=== PATIENT | male | born 1955 | race Caucasian/White ===

== ENCOUNTER 2017-05-24 07:49 | Day surgery (SDC) | payer BC, OTHER ==
[2017-05-23 11:11] VITALS: BMI 28.1
[2017-05-24 08:31] VITALS: TEMP 97.6
[2017-05-24 11:20] VITALS: BP 116/68; PULSE 56
--- NOTE | 2017-05-27 11:34 | PATH ---
Surgical Pathology Report Patient Name: ANAHY EVERETT [facility]. Rec. #: [id number] /Age/Gender: 1955 (Age: 61) / M Account: [id number] Location: [facility]-ENDOSCOPY Taken: 05/24/2017 Received: 05/24/2017 Reported: 05/27/2017 Physicians: Markus Broderick M.D. Specimen(s) Received BX RIGHT COLON POLYPS Clinical History Preoperative diagnosis: Screening Postoperative diagnosis: Polyps, diverticulosis Final Diagnosis COLON, RIGHT, POLYPS, POLYPECTOMY: TUBULAR ADENOMA. SEPARATE FRAGMENTS OF POLYPOID COLONIC MUCOSA WITH FOCAL PROMINENT LYMPHOID AGGREGATE. Electronically Signed Ophelia Fontana M.D. Gross Description Received in formalin, labeled "biopsy right colon polyps" are 5 esqueda, irregular portions of soft tissue ranging from 0.2-0.5 cm. in greatest dimension. The specimens are submitted in toto in one cassette. /05/24/201705/24/2017
== END 2017-05-24 10:40 | disposition home or self-care (01) ==
LOC: JASU-ENDO 07:49
PROVIDERS: ATTEND Internal Medicine Gastroenterology
PROC: 0DBK8ZX Excision of Ascending Colon, Via Natural or Artificial Opening Endoscopic, Diagnostic (ICD-10-PCS; principal; 2017-05-24 09:15)
DX: Z12.11 Encounter for screening for malignant neoplasm of colon (principal); Z83.71 Family history of colonic polyps; K63.5 Polyp of colon; K57.30 Diverticulosis of large intestine without perforation or abscess without bleeding
CPT/HCPCS: 88305-TC

== ENCOUNTER 2018-04-14 09:33 | Day surgery (SDC) | payer OTHER ==
[2018-04-14 10:00] VITALS: BMI 28.8
[2018-04-14 11:11] VITALS: TEMP 98.1
[2018-04-14 11:27] VITALS: PULSE 49
[2018-04-14 12:03] VITALS: BP 131/65
--- NOTE | 2018-04-15 12:38 | PATH ---
Surgical Pathology Report Patient Name: ANAHY EVERETT [facility]. Rec. #: [id number] /Age/Gender: 1955 (Age: 62) / M Account: [id number] Location: [facility] Taken: 04/14/2018 Received: 04/14/2018 Reported: 04/15/2018 Physicians: Markus Broderick M.D. Specimen(s) Received A: BX DUODENAL BULB AND 2ND PORTION B: BX ANTRUM C: BX GASTRIC POLYP D: BX DISTAL AND MID ESOPHAGUS Clinical History Right lower quadrant abdominal pain Postoperative diagnosis: Erosive gastritis, ulcer, polyp gastric fundus Final Diagnosis A. DUODENUM, BULB AND SECOND PORTION, BIOPSY: DUODENAL MUCOSA WITH NO PATHOLOGIC CHANGES. NO HISTOLOGIC EVIDENCE OF GLUTEN SENSITIVE ENTEROPATHY (CELIAC SPRUE) IDENTIFIED. B. STOMACH, ANTRUM, BIOPSY: MILD CHRONIC GASTRITIS. IMMUNOSTAIN FOR H. PYLORI IS NEGATIVE. C. STOMACH, POLYP, BIOPSY: FUNDIC GLAND POLYP. NO ADENOMATOUS CHANGE IS IDENTIFIED. IMMUNOSTAIN FOR H. PYLORI IS NEGATIVE. D. ESOPHAGUS, DISTAL AND MID, BIOPSY: SQUAMOUS EPITHELIUM WITH NO PATHOLOGIC CHANGES. NO INTESTINAL METAPLASIA IDENTIFIED (NO PATINO'S IDENTIFIED). NO EOSINOPHILIC ESOPHAGITIS IDENTIFIED. Electronically Signed Shiva Leone M.D. Gross Description A. Received in formalin, labeled "duodenal bulb and second portion" are 2 esqueda, irregular portions of soft tissue measuring 0.3 and 0.5 cm. in greatest dimension. The specimens are submitted in toto in one cassette. B. Received in formalin, labeled "antrum biopsy" are 4 esqueda, irregular portions of soft tissue ranging from 0.2-0.4 cm. in greatest dimension. The specimens are submitted in toto in one cassette. C. Received in formalin, labeled "gastric polyp" are 2 esqueda, irregular portions of soft tissue measuring 0.1 and 0.5 cm. in greatest dimension. The specimens are submitted in toto in one cassette. D. Received in formalin, labeled "mid and distal esophagus" are 4 esqueda, irregular portions of soft tissue ranging from 0.1-0.5 cm. in greatest dimension. The specimens are submitted in toto in one cassette. 04/14/2018 saudi04/14/2018
== END 2018-04-14 12:03 | disposition home or self-care (01) ==
LOC: JASU-ENDO 09:33
PROVIDERS: ATTEND Internal Medicine Gastroenterology
PROC: 0DB68ZX Excision of Stomach, Via Natural or Artificial Opening Endoscopic, Diagnostic (ICD-10-PCS; principal; 2018-04-14 10:15)
DX: K25.9 Gastric ulcer, unspecified as acute or chronic, without hemorrhage or perforation (principal); K29.70 Gastritis, unspecified, without bleeding; K31.7 Polyp of stomach and duodenum
CPT/HCPCS: 88305-TC; 88342-TC

== ENCOUNTER 2018-06-27 06:24 | Day surgery (SDC) | payer OTHER ==
[2018-06-19 12:09] VITALS: BMI 28.1
[2018-06-27] MEDS ORDERED: LIDOCAINE 1%/EPI 1:100000 (20 ML MULTI DOSE VIAL) ONE ×2 (07:52)
[2018-06-27] MEDS ORDERED: MIDAZOLAM HCL 2 MG/2 ML SINGLE DOSE VIAL ONE (07:53)
[2018-06-27] MEDS ORDERED: PROPOFOL 20 ML ONE ×2 (07:57)
[2018-06-27] MEDS ORDERED: ceFAZolin SODIUM 1 GM VIAL ONE (08:22)
[2018-06-27] MEDS ORDERED: ONDANSETRON 4 MG/2 ML VIAL ONE (08:27)
[2018-06-27] MEDS ORDERED: DEXAMETHASONE SOD PHOSPHATE 4 MG/1 ML VIAL ONE (08:27)
[2018-06-27] MEDS ORDERED: BUPIVACAINE HCL/PF 2.5 MG/ML - 30 ML VIAL IJ ONE (08:54)
[2018-06-27] MEDS ORDERED: BUPIVACAINE HCL/PF 0.25% (2.5MG/ML) 10 ML VIAL IJ ONE (08:56)
[2018-06-27] MEDS ORDERED: ONDANSETRON 4 MG/2 ML VIAL IVPUSH PRN (09:36)
[2018-06-27] MEDS ORDERED: LACTATED RINGERS SOLUTION 1,000 ML IV SCH (09:45)
--- NOTE | 2018-06-27 09:58 | OP ---
Operative Note - Note: Operative Date: 06/27/18 Pre-Operative Diagnosis: back mass Operation: liposuction of uper back, excision of back mass Surgeon: Porter Blood Health Policy Analyst: Gracia Valdovinos Anesthesiologist/CHIEF SECURITY OFFICER: Dione Oneal Anesthesia: Local, MAC Estimated Blood Loss (mls): 20 Fluid Volume Replaced (mls): 700 Operative Report Dictated: Yes
[2018-06-27 10:17] VITALS: TEMP 97.8
[2018-06-27] MEDS ORDERED: ACETAMINOPHEN WITH CODEINE 300MG/30MG TABLET ONE (10:28)
[2018-06-27 11:02] VITALS: BP 100/57; PULSE 53
[2018-06-27] MEDS ORDERED: ACETAMINOPHEN WITH CODEINE 300MG/30MG TABLET PO PRN (12:01)
--- NOTE | 2018-06-28 07:01 | OP ---
DATE OF OPERATION: 06/27/2018 SURGEON: Jeff Blood MD PHP ENGINEER SURGEON: LAZ Chowdary PREOPERATIVE DIAGNOSIS: Mass of posterior neck and back measuring 20 cm in greatest dimension. POSTOPERATIVE DIAGNOSIS: Mass of posterior neck and back measuring 20 cm in greatest dimension. OPERATIVE PROCEDURE: Extirpation of large, recurrent posterior neck and back mass. OPERATIVE INDICATION: The patient is a 62-year-old white male who has had a recurrent mass of the upper posterior neck and back, which was operated on approximately 10 years ago and has now recurred, which does not allow him to extend his head and neck without discomfort and distortion. The risks and benefits of surgical versus nonsurgical alternatives as well as material complications of the procedure were described to the patient on multiple occasions preoperatively. He agreed to the planned procedure. The patient was marked in the sitting position preoperatively for outline of the mass and further discussion of the risks and benefits. DESCRIPTION OF PROCEDURE: The patient was taken to the operating room, and after being placed in the prone position, monitored care anesthesia with TIVA anesthesia was induced for the patient. After being comfortable, 0.5% local lidocaine anesthesia with 1:200,000 epinephrine was injected circumferentially around the mass, which measured approximately 20 cm in greatest dimension across the upper back and neck. At this point, dilute epinephrine solution was also injected into the tissues for hemostatic and anesthesia purposes. After allowing topical anesthesia and hemostasis for approximately 15 minutes, attention was turned to the mass. An incision was made over the mass, down through the skin, to the subcutaneous tissue, through the deep fascia, and into the subdermal mass. This mass extended down into the trapezius and spinous muscles deeply on the chest wall and were densely adherent to the underlying musculature. The tissue was removed in pieces over the circumference of approximately 20 cm superiorly, medially, laterally, and inferiorly. The tissue was excised and sent for pathologic diagnosis. A large amount of scar tissue was seen from previous excisions, and difficult dissection was carried out with complex closure. Once the tissues were excised, examination of the wound for hemostasis was carried out. Meticulous hemostasis was carried out using electrocautery. At this point, copious irrigation of the wounds was performed. Multiple layers of sutures were then placed in a complex fashion. Advancement flap suture created superiorly, inferiorly, laterally, and medially were then brought together with 2-0 PDS suture in the deep layers of the skin and dermis and then tacking this down to the underlying fascia of the musculature. Then 0.25% Marcaine was also infiltrated into the deep muscles at the base of the wound for postoperative anesthesia tissues. After multiple layers of suture were used with 2-0 PDS, a subcuticular suture with 3-0 V-Lock suture was carried out on the skin itself for closure of the wound. The patient tolerated this procedure nicely. He was transferred back to the stretcher in the operating room and went to the recovery room in satisfactory condition. He tolerated the procedure well. JEFF BLOOD M.D. [id number]
--- NOTE | 2018-07-01 15:04 | PATH ---
Surgical Pathology Report Patient Name: ANAHY EVERETT Med. Rec. #: [id number] /Age/Gender: 1955 (Age: 62) / M Account: [id number] Location: [facility] AMBUL[facility] Taken: 06/27/2018 Received: 06/27/2018 Reported: 07/01/2018 Physicians: Porter Blood Specimen(s) Received MASS OF BACK Clinical History Cosmetic Final Diagnosis MASS, BACK, EXCISION: PORTION OF ADIPOSE TISSUE, CONSISTENT WITH LIPOMA. Electronically Signed Ermelinda Red M.D. Gross Description Received in formalin labeled "mass of back," a 9.5 x 7.0 x 3.0 cm aggregate of multiple irregular, unoriented portions of fibrous tissue admixed with yellow, lobulated adipose tissue. Quill Reamer sections are submitted in 3 cassettes. /06/30/[address] [facility]06/30/2018
== END 2018-06-27 10:55 | disposition home or self-care (01) ==
LOC: FASU 06:24
PROVIDERS: ATTEND Plastic Surgery
PROC: 0JB70ZX Excision of Back Subcutaneous Tissue and Fascia, Open Approach, Diagnostic (ICD-10-PCS; 2018-06-27)
PROC: 0KBF0ZZ Excision of Right Trunk Muscle, Open Approach (ICD-10-PCS; principal; 2018-06-27 08:29)
DX: D17.1 Benign lipomatous neoplasm of skin and subcutaneous tissue of trunk (principal); D17.0 Benign lipomatous neoplasm of skin and subcutaneous tissue of head, face and neck
CPT/HCPCS: 88304-TC; 94760

== ENCOUNTER 2019-01-16 10:09 | Day surgery (SDC) | payer OTHER ==
[2019-01-16 10:50] VITALS: BMI 28.1
[2019-01-16 13:22] VITALS: TEMP 98.1
[2019-01-16 14:44] VITALS: BP 140/73; PULSE 53
--- NOTE | 2019-01-21 11:00 | PATH ---
Surgical Pathology Report Patient Name: ANAHY EVERETT [facility]. Rec. #: [id number] /Age/Gender: 1955 (Age: 63) / M Account: [id number] Location: [facility]-ENDOSCOPY Taken: 01/16/2019 Received: 01/16/2019 Reported: 01/21/2019 Physicians: Markus Broderick M.D. Specimen(s) Received ANTRUM BX Clinical History History of stomach ulcers Final Diagnosis ANTRUM, BIOPSY: GASTRIC MUCOSA WITH FOCAL ACTIVE CHRONIC GASTRITIS. IMMUNOSTAIN FOR H. PYLORI IS NEGATIVE. NEGATIVE FOR INTESTINAL METAPLASIA. Electronically Signed Leonel Silver M.D. Gross Description Received in formalin, labeled "antrum" are 4 esqueda, irregular portions of soft tissue measuring 0.2 to 0.3 cm. in greatest dimension. The specimen is submitted in toto in one cassette. NANCY/01/19/2019 mary/01/19/2019
== END 2019-01-16 14:05 | disposition home or self-care (01) ==
LOC: JASU-ENDO 10:09
PROVIDERS: ATTEND Internal Medicine Gastroenterology
PROC: 0DB68ZX Excision of Stomach, Via Natural or Artificial Opening Endoscopic, Diagnostic (ICD-10-PCS; principal; 2019-01-16 11:15)
DX: K25.9 Gastric ulcer, unspecified as acute or chronic, without hemorrhage or perforation (principal); K44.9 Diaphragmatic hernia without obstruction or gangrene
CPT/HCPCS: 88305-TC; 88342-TC

== ENCOUNTER 2020-08-24 04:35 | Day surgery (SDC) | payer OTHER ==
[2020-08-22 13:04] VITALS: BMI 28.8
[2020-08-24 08:46] VITALS: TEMP 97.3
[2020-08-24 10:27] VITALS: BP 133/78; PULSE 51
== END 2020-08-24 10:28 | disposition home or self-care (01) ==
LOC: JASU-ENDO 04:35
PROVIDERS: ATTEND Internal Medicine Gastroenterology
PROC: 0DBH8ZX Excision of Cecum, Via Natural or Artificial Opening Endoscopic, Diagnostic (ICD-10-PCS; 2020-08-24)
PROC: 0DB98ZX Excision of Duodenum, Via Natural or Artificial Opening Endoscopic, Diagnostic (ICD-10-PCS; 2020-08-24)
PROC: 0DB78ZX Excision of Stomach, Pylorus, Via Natural or Artificial Opening Endoscopic, Diagnostic (ICD-10-PCS; 2020-08-24)
PROC: 0DBL8ZX Excision of Transverse Colon, Via Natural or Artificial Opening Endoscopic, Diagnostic (ICD-10-PCS; principal; 2020-08-24 08:00)
DX: Z12.11 Encounter for screening for malignant neoplasm of colon (principal); Z86.010 Personal history of colon polyps; Z83.71 Family history of colonic polyps; D12.3 Benign neoplasm of transverse colon; K64.8 Other hemorrhoids; K63.5 Polyp of colon; K57.30 Diverticulosis of large intestine without perforation or abscess without bleeding; K21.9 Gastro-esophageal reflux disease without esophagitis; K29.70 Gastritis, unspecified, without bleeding; K31.7 Polyp of stomach and duodenum; R12 Heartburn